=== PATIENT | female | born 2000 | race African-American/Black ===

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

== ENCOUNTER 2023-04-18 18:25 | Emergency (ER) | payer OTHER ==
[~2023-04-18] VITALS: Ht 170.2 cm; Wt 104.3 kg
[2023-04-18 19:09] VITALS: BP 121/77; PULSE 101; RESP 16; TEMP 98.5; O2SAT 100
[2023-04-18 19:33] LABS: Urine Bacteria FEW /hpf (None Seen); Urine Blood 3+ /uL (Negative); Urine Clarity HAZY (Clear); Urine Mucus FEW (None Seen); Urine Protein, UAD 1+ (Negative); Urine Specific Gravity 1.018 (1.001-1.035); Urine Urobilinogen Normal (Negative); Urine WBC 505 /hpf (0 - 5); Urine WBC Clumps PRESENT /hpf (None Seen)
[2023-04-18 19:34] LABS: Urine Color Yellow (Yellow)
[2023-04-18 20:01] LABS: Basophils # (auto) 0 10 ^3/uL (0-0.2); Basophils % (auto) 0.6 % (0.0-2.0); Eosinophils # (auto) 0 10 ^3/uL (0-0.8); Eosinophils % (auto) 0.2 % (0.0-7.0); Hematocrit 37.2 % (36.0-46.0); Hemoglobin 12.3 g/dL (12.2-16.2); Lymphocytes # (auto) 1.6 10 ^3/uL (0.4-5.4); Lymphocytes % (auto) 20.6 % (10.0-50.0); Mean Corpuscular Hemoglobin 27.9 pg (28.0-32.0); Mean Corpuscular Volume 84.7 fL (80.0-100.0); Monocytes # (auto) 0.4 10 ^3/uL (0-1.3); Monocytes % (auto) 5.2 % (0.0-12.0); Neutrophils # (auto) 5.9 10 ^3/uL (1.6-8.6); Neutrophils % (auto) 73.4 % (37.0-80.0); Nucleated Red Blood Cells % 0.1 %; Red Blood Cells 4.39 10^6/uL (4.0-5.20); Red Cell Distribution Width 14.6 % (11.8-14.3)
[2023-04-18 20:18] LABS: Alanine Aminotransferase 14 U/L (7-40); Albumin 4.8 g/dL (3.2-4.8); Alkaline Phosphatase 45 U/L (46-116); Anion Gap 7 (5-15); Aspartate Aminotransferase 11 U/L (13-40); BUN/Creatinine Ratio 11.3 (10.0-20.0); Bilirubin, Total 0.3 mg/dL (0.2-1.0); Blood Urea Nitrogen 8 mg/dL (9-23); Calcium 9.6 mg/dL (8.7-10.4); Carbon Dioxide 26 mmol/L (20-30); Chloride 103 mmol/L (98-107); Glucose 90 mg/dL (74-106); Sodium 136 mmol/L (136-145)
[2023-04-18 20:19] LABS: Total Protein 7.7 g/dL (5.7-8.2)
[2023-04-18] MEDS ORDERED: SODIUM CHLORIDE 0.9% 1,000 ML IV ONE (21:45)
[2023-04-18] MEDS ORDERED: CEFTRIAXONE SODIUM 2 GM in D5W 5% 100 ML IV ONE (21:45)
[2023-04-18] MEDS ORDERED: CIPR-173 PO (21:48)
[2023-04-18] MEDS ORDERED: PHEN-922 PO (21:48)
[2023-04-19] MEDS ORDERED: cefTRIAXone SOD 1,000 MG VL IM ONE
== END 2023-04-19 00:36 | disposition home or self-care (01) ==
LOC: ER 18:25
DX: N39.0 Urinary tract infection, site not specified (principal); R31.9 Hematuria, unspecified; Z79.899 Other long term (current) drug therapy
CPT/HCPCS: 36415; 76775; 80053; 81001; 81025; 85025; 87086; 87088; 87186; 96372; 99285; J0696; J7060